=== PATIENT | female | born 1990 | race Two or more races ===

== ENCOUNTER 2016-09-13 16:09 | Emergency (ER) | payer OTHER ==
[~2016-09-13] VITALS: Ht 152.4 cm; Wt 49.0 kg
[~2016-09-13 16:09] MED LIST: ALBUTEROL SULF8.5 GM INH; AZITHROMYCIN250 MG ORAL; NITROFURANTOIN100 M2 ORAL
[2016-09-13 17:14] LABS: APPEARANCE,URINE CLEAR; KETONES,URINE NEGATIVE (NEGATIVE); LEUKOCYTE ESTERASE ,URINE 1+ (NEGATIVE); NITRITE,URINE NEGATIVE (NEGATIVE); PH,URINE 6.5 (4.5-8.0); PROTEIN,URINE NEGATIVE (NEGATIVE); UROBILINOGEN,URINE NORMAL MG/DL (0.0-1.0)
[2016-09-13 17:27] LABS: RBC,URINE 0-2 /HPF (0 - 2); SQUAMOUS EPITHELIAL CELL,UR OCCASIONAL /LPF (NONE/OCC)
[2016-09-13] MEDS ORDERED: NITROFURANTOIN100 M2 ORAL (17:34)
[2016-09-13 17:39] VITALS: BP 96/62
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
== END 2016-09-13 17:40 | disposition home or self-care (01) ==
LOC: EMR 16:51
DX: N39.0 Urinary tract infection, site not specified (principal)
CPT/HCPCS: 81003; 81025; 99283